=== PATIENT | male | born 1955 | race Caucasian/White ===

== ENCOUNTER 2022-01-21 15:38 | Emergency (ER) | payer MEDICARE, SELFPAY ==
[2022-01-21 15:41] VITALS: BP 164/57; PULSE 69; RESP 20; TEMP 36.7; O2SAT 96
[2022-01-21 17:07] VITALS: BP 135/79; PULSE 89; RESP 16; O2SAT 98
--- NOTE | 2022-01-21 17:09 | ED.BACK ---
HPI - Back Pain/Injury General Chief Complaint: Back Pain/Injury Stated Complaint: back pain Time Seen by Provider: 01/21/22 17:04 History of Present Illness HPI Narrative: 66-year-old male presented the emergency room complaints of low back pain. Patient states he woke up this morning with right lower back pain, radiating to his buttock. Pain was worse with rotation and lateral movements to the right and when he sat on it. No radiating pain down his leg. Denies any saddle anesthesia. Denied any difficulty with his bowel or bladder habits. Denies any injury or trauma. Related Data Allergies Allergy/AdvReac Type Severity Reaction Status Date / Time No Known Allergies Allergy Verified 01/21/22 15:43 Review of Systems Review of Systems: CONSTITUTIONAL: Denies fever, chills, or sweats. EYES: Denies visual changes, redness, or discharge. ENT: Denies rhinorrhea, congestion, sore throat, or otalgia. CARDIOVASCULAR: Denies chest pain, palpitations, or edema. RESPIRATORY: Denies cough or dyspnea. GASTROINTESTINAL: Denies abdominal pain, nausea, vomiting, or diarrhea. GENITOURINARY: Denies dysuria or hematuria. SKIN: Denies rash or itching. MUSCULOSKELETAL: Reports low back pain NEUROLOGIC: Denies headache, numbness, dizziness, or weakness. PSYCHIATRIC: Denies anxiety or depression. Exam Narrative: GENERAL: Well-appearing, well-nourished, no physical limitations, and in no acute distress. HEAD: Normocephalic, atraumatic. EYES: Conjunctivae normal, PERRLA and EOMI. NECK: Supple. No meningeal signs. No adenopathy or masses. No carotid bruits or JVD CHEST: Clear to auscultation. No respiratory distress. No wheezes rales or rhonchi. No tenderness. HEART: Regular rate and rhythm. No murmur heard. Normal peripheral pulses. BACK: No midline lumbar tenderness, or step-off, no bony abnormality. Limited range of motion with right rotation and right lateral bend of the trunk. Negative SLE with right EXTREMITIES: Normal range of motion. No edema. No clubbing or cyanosis SKIN: Warm, dry, no rash. No noted wounds NEURO: No focal deficits. Alert and oriented x3. MAEW. CN's II-XI intact bilaterally, antalgic gait PSYCH: Cooperative. Normal mood and affect. Course Vital Signs Vital signs: Vital Signs Temperature 36.7 C 01/21/22 15:41 Pulse Rate 69 01/21/22 15:41 Respiratory Rate 20 01/21/22 15:41 Blood Pressure 164/57 H 01/21/22 15:41 Pulse Oximetry 96 01/21/22 15:41 Oxygen Delivery Room Air 01/21/22 15:41 Temperature 36.7 C 01/21/22 15:41 Pulse Rate 89 01/21/22 17:07 Respiratory Rate 16 01/21/22 17:07 Blood Pressure 135/79 01/21/22 17:07 Pulse Oximetry 98 01/21/22 17:07 Oxygen Delivery Room Air 01/21/22 15:41 Discharge Plan Discharge Clinical Impression: Strain of lumbar region Patient Disposition: Home, Self-Care Condition: Stable Instructions: Antibiotic Form, Acute Low Back Pain (ED) Additional Instructions: I recommend taking Tylenol or ibuprofen as needed for pain. Also recommend using a heating pad to the affected area. Prescriptions: New methocarbamol 750 mg tablet 750 mg PO TID Qty: 21 0RF Follow-up/Referrals: PHYSICIAN,ELECTRIC TRANSFER OPERATOR [Non-Staff] - Time of Disposition: 17:12
[2022-01-21] MEDS: KETOROLAC (*BKC) 60 MG/2 ML VIAL IM (17:16)
== END 2022-01-21 17:51 | disposition home or self-care (01) ==
LOC: ANHED 17:32
PROVIDERS: Emergency Provider Nurse Practitioner Family; PCP Internal Medicine
DX: S39.012A Strain of muscle, fascia and tendon of lower back, initial encounter (principal); X58.XXXA Exposure to other specified factors, initial encounter
CPT/HCPCS: 96372; 99283; J1885

== ENCOUNTER → 2022-02-01 06:55 | Outpatient (CLI) | payer MEDICARE, SELFPAY ==
--- NOTE | ~2022-02-01 | MR_ITS ---
EXAMINATION: MR lumbar spine wo con DATE: 02/01/2022 07:42 INDICATION: Low back pain TECHNIQUE: Magnetic resonance imaging (MRI) of the lumbar spine was performed without intravenous con trast. Sequences included sagittal T2-weighted FSE, sagittal T2-weighted FS FSE, sagittal T1-weighted FSE, and axial T2-weighted FSE. COMPARISON: None FINDINGS: 12 degrees lumbar levoscoliosis. 3 mm retrolisthesis L1 on L2 and 3 mm anterolisthesis L4 on L5. Vert ebral body heights are normal. There are small Schmorl's nodes along a few of the endplates in the lo wer thoracic spine and at the superior endplate of L1. T1 hyperintense hemangioma at L2. Marrow signa l is otherwise unremarkable. Moderate disc height loss at L4-L5, mild to moderate disc height loss at T12-L1 and L1-L2 and mild disc height loss at T10-T11, T11-T12 and at the remaining lumbar levels. T he conus medullaris terminates at T12-L1. There is a transition from relatively lax appearing of the nerve roots relatively loosely distributed in the thecal sac cephalad to a severe stenosis at L1-L2 w ith relatively taut appearance of the posteriorly positioned nerve roots in the more caudal thecal sa c. There is normal signal in the caudal spinal cord. 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 Paravertebral so ft tissues are unremarkable. The following disc levels are specifically discussed: T12-L1: Small central disc protrusion. There is moderate bilateral facet joint osteoarthritis. There is minimal bilateral neural foraminal stenosis. There is minimal central canal stenosis. L1-L2: Disc is bulging with annular fissure and superimposed right paracentral disc extrusion with di sc material extending a few millimeters cephalad and caudal to the level of the endplates. Additional ly there is an ovoid likely sequestered disc fragment measuring 1.3 x 0.8 0.7 cm positioned posterior to the thecal sac at the level of L1 which together with the disc extrusion results in right-sided p redominant severe central canal stenosis with no discernible CSF signal surrounding the centrally clu stered nerve roots. There is moderate bilateral facet joint osteoarthritis. There is moderate left an d moderate to severe right neural foraminal stenosis. There is also stenosis of the lateral recesses, severe on the right and moderate on the left. L2-L3: Disc is mildly bulging. There is mild to moderate bilateral facet joint osteoarthritis. There is moderate right and mild to moderate left neural foraminal stenosis. There is mild central canal st enosis. L3-L4: Moderate diffuse disc bulge with annular fissure. There is mild bilateral facet joint osteoart hritis. There is moderate right and mild to moderate left neural foraminal stenosis. There is mild ce ntral canal stenosis. L4-L5: Disc is mildly bulging with annular fissure. There is severe bilateral facet joint osteoarthri tis. There is moderate bilateral neural foraminal stenosis. There is mild central canal stenosis. L5-S1: Disc is mildly bulging with annular fissure and small central disc extrusion with disc materia l extending up to 5 mm caudal to the level of the superior endplate of S1. There is moderate bilatera l facet joint osteoarthritis. There is moderate bilateral neural foraminal stenosis. There is mild ce ntral canal stenosis. IMPRESSION: 1. Mild lumbar levoscoliosis with moderate spondylosis most notable for a disc extrusion and likely p osteriorly displaced sequestered disc fragment at L1-L2 resulting in severe central canal stenosis wi th moderate left and moderate to severe right neural foraminal stenosis at this level. Reviewed, dictated and finalized at location A. IMPRESSION: 1. M
== END ==
PROVIDERS: PCP Internal Medicine; Visit Provider Internal Medicine
DX: M47.896 Other spondylosis, lumbar region (principal)
CPT/HCPCS: 72148

== ENCOUNTER 2024-12-07 00:52 | Day surgery (SDC) | payer MEDICARE, SELFPAY ==
[2024-11-20 14:32] VITALS: BMI 40.4
[2024-12-07 09:59] VITALS: BP 131/55; PULSE 63; RESP 18; TEMP 36.2; O2SAT 98
[2024-12-07] MEDS: LACTATED RINGERS 1,000 ML 150 ML IV CONT (10:12)
[2024-12-07 10:16] LABS: Glucose Point of Care 101 mg/dl (65-105)
--- NOTE | 2024-12-07 10:28 | P.PNAN_ITS ---
Anes - Initial Pre Proc Eval Procedure: Operation Date: 12/07/24 11:00 Proposed Procedures p EGD & Screening Colonoscopy - William Arnett MD Date/Time: 12/07/24 10:28 Surgeon: William Arnett MD Pre Op Diagnosis: Personal history of colon polyps, unspecified Patient Data Age: 69 Gender: M Height: 1.88 m Weight: 144.6 kg Last Vital Signs Temp 36.2 C L 12/07/24 09:59 Pulse 63 12/07/24 09:59 Resp 18 12/07/24 09:59 BP 131/55 L 12/07/24 09:59 Pulse Ox 98 12/07/24 09:59 O2 Del Method Room Air 12/07/24 09:59 Allergies Allergy/AdvReac Type Severity Reaction Status Date / Time No Known Allergies Allergy Verified 11/20/24 14:38 Home Medications ?Medication ?Instructions ?Recorded ?Confirmed ?Type methocarbamol 750 mg tablet 750 mg PO TID #20 tabs 01/21/22 12/07/24 Rx methocarbamol 750 mg tablet 750 mg PO TID #21 tabs 01/21/22 12/07/24 Rx aspirin 81 mg tablet,delayed 81 mg PO DAILY 11/20/24 12/07/24 History release (Adult Aspirin Regimen) geriatric multivitamin-min 1 tablet PO DAILY 11/20/24 12/07/24 History lisinopril 20 mg tablet 20 mg PO DAILY 11/20/24 12/07/24 History nebivolol 5 mg tablet 5 mg PO DAILY 11/20/24 12/07/24 History rosuvastatin 10 mg tablet 10 mg PO DAILY 11/20/24 12/07/24 History semaglutide 2 mg/dose (8 mg/3 mL) 2 mg subcut WEEKLY 11/20/24 12/07/24 History subcutaneous pen injector (Ozempic) Laboratory Tests 12/07/24 10:11 POC Capillary Glucose 101 mg/dl (65-105) Patient hx anesthesia problems: none Family hx anesthesia problems: none Results Review: All pre-operative results and documents have been reviewed as part of the pre- operative evaluation. [facility] Past Medical History Medical History (Updated 12/05/24 @ 13:11 by Nicolás Stevenson DO) Diabetes type 2, controlled Asthma Hyperlipidemia Hypertension Social History Social History Smoking status: Never smoker Alcohol intake: current Drinks per week: 4 Substance use: never Substance use type: does not use Living arrangements: with family Spiritual care concerns: No Anes - Eval Final PreProcedure Day of Procedure 12/07/24 10:28 Patient weight: morbidly obese Heart: regular rate and rhythm Lungs: clear to auscultation Airway: Mallampati scale class II Neurological: alert and oriented Last oral intake: >/= 8 hours ASA classification: III Emergent: no Anesthetic plan: proceed Anesthesia type and monitoring: general GIVS and standard monitoring Results Review: All pre-operative results and documents have been reviewed as part of the pre- operative evaluation. Informed Consent: The patient's anesthetic plan and its attendant risks and benefits were discussed with the patient/family/POA. Questions were solicited and answers provided to the satisfaction of the patient/family/POA.
--- NOTE | 2024-12-07 11:03 | PM.HPGS ---
History of Present Illness History of Present Illness Consent: Risks, benefits, and alternatives have been discussed and questions answered. Patient agrees to proceed with procedure. Chief complaint: Personal history of colon polyps, unspecified Narrative: Bossman Kitchen is a 69 year old male with last colonoscopy 5 years ago without polyp but previous one he did have a polyp. Review of Systems Review of Systems: All systems reviewed & are unremarkable except as noted in HPI and below PMFSH Past Medical History Medical History (Updated 12/07/24 @ 11:04 by William Arnett MD) Colon polyp Diabetes type 2, controlled Asthma Hyperlipidemia Hypertension Social History Social History Smoking status: Never smoker Alcohol intake: current Drinks per week: 4 Substance use: never Substance use type: does not use Living arrangements: with family Spiritual care concerns: No Meds Home Medications and Allergies Home Medications ?Medication ?Instructions ?Recorded ?Confirmed ?Type methocarbamol 750 mg tablet 750 mg PO TID #20 tabs 01/21/22 12/07/24 Rx methocarbamol 750 mg tablet 750 mg PO TID #21 tabs 01/21/22 12/07/24 Rx aspirin 81 mg tablet,delayed 81 mg PO DAILY 11/20/24 12/07/24 History release (Adult Aspirin Regimen) geriatric multivitamin-min 1 tablet PO DAILY 11/20/24 12/07/24 History lisinopril 20 mg tablet 20 mg PO DAILY 11/20/24 12/07/24 History nebivolol 5 mg tablet 5 mg PO DAILY 11/20/24 12/07/24 History rosuvastatin 10 mg tablet 10 mg PO DAILY 11/20/24 12/07/24 History semaglutide 2 mg/dose (8 mg/3 mL) 2 mg subcut WEEKLY 11/20/24 12/07/24 History subcutaneous pen injector (Ozempic) Allergies Allergy/AdvReac Type Severity Reaction Status Date / Time No Known Allergies Allergy Verified 11/20/24 14:38 Vital Signs Vital Signs - 24 hr 12/07/24 09:59 Temperature 97.2 F L Pulse Rate 63 Respiratory Rate 18 Blood Pressure 131/55 L Pulse Oximetry 98 Oxygen Delivery Room Air Exam Const: General: comfortable and no acute distress HENMT: Face/Nose/Sinus: Normal nares present Eyes: General: appearance normal, both eyes and all related structures Neck: Neck: no JVD Resp: Auscultation: clear to auscultation bilaterally Cardio: Rate: regular rate Rhythm: regular rhythm GI: Inspection: non-distended GI Palp: Yes Soft to palpation Skin: General skin exam: normal color Neuro: Speech: normal speech Extrem: General: normal to inspection Psych: Mental Status: mental status grossly normal Assessment and Plan Assessment and plan (1) Colon polyp: Code(s): K63.5 - Polyp of colon Status: Acute Assessment and Plan: colonoscopy
[2024-12-07 11:25] VITALS: BP 98/47; PULSE 56; RESP 18; O2SAT 95
[2024-12-07 11:35] VITALS: BP 122/47; PULSE 60; RESP 20; O2SAT 100
[2024-12-07 11:45] VITALS: BP 111/4; PULSE 58; RESP 20; O2SAT 100
== END 2024-12-07 11:54 | disposition home or self-care (01) ==
PROVIDERS: PCP Internal Medicine; Referring Provider Internal Medicine; Visit Provider Internal Medicine Gastroenterology
PROC: 0DJ08ZZ Inspection of Upper Intestinal Tract, Via Natural or Artificial Opening Endoscopic (ICD-10-PCS; CPT 45378; principal; 2024-12-07 11:00)
DX: Z12.11 Encounter for screening for malignant neoplasm of colon (principal); K57.30 Diverticulosis of large intestine without perforation or abscess without bleeding; Z86.0100 Personal history of colon polyps, unspecified; E11.9 Type 2 diabetes mellitus without complications; E66.01 Morbid (severe) obesity due to excess calories; Z68.41 Body mass index [BMI] 40.0-44.9, adult
CPT/HCPCS: G0105; 82948; J2003; J2704; J7120